=== PATIENT | male | born 1995 | race Caucasian/White ===

== ENCOUNTER 2016-09-23 15:50 | Inpatient (IN) | payer MEDICAID ==
[~2016-09-23] VITALS: Ht 180.3 cm; Wt 91.8 kg
[2016-09-23 22:13] LABS: BASOPHIL % 0.6 % (0-2); PLATELET COUNT 183 x10^3mcL (130-400); RED CELL DISTRIBUTION WIDTH 12.8 % (11.5-14.5)
[2016-09-23 22:27] LABS: CALCIUM 9.5 mg/dL (8.5-10.1); CARBON DIOXIDE 22.6 mmol/L (21-32); CHLORIDE SERUM 102 mmol/L (98-107); GFR1 > 60 mL/min; GLUCOSE SERUM 97 mg/dL (74-106); POTASSIUM SERUM 3.3 mmol/L (3.5-5.1); SODIUM SERUM 141 mmol/L (136-145)
[2016-09-23 22:40] LABS: ALBUMIN 4.6 g/dL (3.4-5.0); ALKALINE PHOSPHATASE 93 U/L (46-116); ALT/SGPT 24 U/L (16-63); AST/SGOT 22 U/L (15-37); BILIRUBIN TOTAL 0.8 mg/dL (0.20-1.00); T4(THYROXINE) 9.6 ug/dL (4.7-13.3); TOTAL PROTEIN, SERUM 7.8 g/dL (6.4-8.2)
[2016-09-24 00:50] LABS: AMPHETAMINE QUAL UR NONE DETECTED (NEG <=1000)
[2016-09-24 07:13] LABS: UA SPECIFIC GRAVITY 1.025 (1.005-1.035); microscopic required? YES; urine erythrocyte NEGATIVE (NEGATIVE)
[2016-09-24 07:20] LABS: MAGNESIUM 2.1 mg/dL (1.8-2.4); PHOSPHOROUS 4.5 mg/dL (2.5-4.9)
[2016-09-24 07:24] LABS: CHOLESTEROL/HDL RATIO 2.9
[2016-09-24 15:57] VITALS: BP 131/76
[2016-09-24 21:03] VITALS: BP 120/69
[2016-09-25 05:44] VITALS: BP 122/72
[2016-09-25 08:45] VITALS: BP 131/72
[2016-09-25 09:18] LABS: BASOPHIL % 0.9 % (0-2); PLATELET COUNT 162 x10^3mcL (130-400); RED CELL DISTRIBUTION WIDTH 13.2 % (11.5-14.5)
[2016-09-25 09:47] LABS: MAGNESIUM 1.8 mg/dL (1.8-2.4); PHOSPHOROUS 2.9 mg/dL (2.5-4.9)
[2016-09-25 11:26] LABS: CALCIUM 8.9 mg/dL (8.5-10.1); CARBON DIOXIDE 23.6 mmol/L (21-32); CHLORIDE SERUM 107 mmol/L (98-107); CREATININE SERUM 0.9 mg/dL (0.7-1.3); GFR1 > 60 mL/min; GLUCOSE SERUM 81 mg/dL (74-106); POTASSIUM SERUM 4.1 mmol/L (3.5-5.1); SODIUM SERUM 141 mmol/L (136-145)
[2016-09-25 11:50] VITALS: Ht 180.3 cm; Wt 91.8 kg
[2016-09-25 13:30] VITALS: BP 138/84
[2016-09-25 16:05] VITALS: BP 124/80
[2016-09-25 20:35] VITALS: BP 141/80
[2016-09-26 05:47] VITALS: BP 132/78
[2016-09-26 06:34] LABS: PLATELET COUNT 165 x10^3mcL (130-400); RED CELL DISTRIBUTION WIDTH 12.5 % (11.5-14.5)
[2016-09-26 06:47] LABS: microscopic required? NO
[2016-09-26 06:57] LABS: CALCIUM 8.8 mg/dL (8.5-10.1); CARBON DIOXIDE 24.8 mmol/L (21-32); CHLORIDE SERUM 109 mmol/L (98-107); CREATININE SERUM 0.8 mg/dL (0.7-1.3); GFR1 > 60 mL/min; GLUCOSE SERUM 94 mg/dL (74-106); MAGNESIUM 1.8 mg/dL (1.8-2.4); PHOSPHOROUS 3.6 mg/dL (2.5-4.9); POTASSIUM SERUM 3.7 mmol/L (3.5-5.1); SODIUM SERUM 147 mmol/L (136-145)
[2016-09-26 07:01] LABS: urine erythrocyte NEGATIVE (NEGATIVE)
[2016-09-26 07:55] VITALS: BP 108/63
[2016-09-26] MEDS ORDERED: COLACE100 MG PO ×3 (15:59→17:06)
[2016-09-26] MEDS ORDERED: NOR10T PO (16:00)
[2016-09-26] MEDS ORDERED: ZOLOFT25 MG PO (17:00)
[2016-09-26 17:04] VITALS: BP 108/63
[2016-09-26] MEDS ORDERED: IBUPROFEN400 MG PO (17:05)
[2016-09-26 17:10] VITALS: BP 129/75
== END 2016-09-26 18:13 | disposition home or self-care (01) | DRG 756 ==
LOC: ED 15:50 → DU 09-24 07:27 → MU 09-25 18:18
PROVIDERS: Emergency Medicine; ADMIT Family Medicine
DX: R45.851 Suicidal ideations (principal); N17.0 Acute kidney failure with tubular necrosis; K90.0 Celiac disease; E87.6 Hypokalemia; S62.314A Displaced fracture of base of fourth metacarpal bone, right hand, initial encounter for closed fracture; S62.316A Displaced fracture of base of fifth metacarpal bone, right hand, initial encounter for closed fracture; F12.10 Cannabis abuse, uncomplicated; W22.01XA Walked into wall, initial encounter; Y92.009 Unspecified place in unspecified non-institutional (private) residence as the place of occurrence of the external cause; Z68.28 Body mass index [BMI] 28.0-28.9, adult
CPT/HCPCS: 83880; C9113; G0480; J3490; J7030; Q0092

== ENCOUNTER → 2016-10-01 | Outpatient (CLI) | payer MEDICAID ==
[~2016-10-01] MED LIST: COLACE100 MG PO; IBUPROFEN400 MG PO; NOR10T PO; ZOLOFT25 MG PO
== END | disposition home or self-care (01) ==
LOC: RD 10:58
DX: M79.641 Pain in right hand (principal)

== ENCOUNTER 2019-08-24 05:23 | Emergency (ER) | payer SELFPAY ==
[~2019-08-24] VITALS: Ht 180.3 cm; Wt 90.3 kg
[2019-08-24 05:31] VITALS: Ht 180.3 cm; Wt 90.3 kg
[2019-08-24 06:31] LABS: CALCIUM 8.7 mg/dL (8.5-10.1); CARBON DIOXIDE 28.7 mmol/L (21-32); CHLORIDE SERUM 105 mmol/L (98-107); GFR1 > 60 mL/min; GLUCOSE SERUM 102 mg/dL (74-106); POTASSIUM SERUM 4.3 mmol/L (3.5-5.1); SODIUM SERUM 139 mmol/L (136-145)
[2019-08-24 06:35] LABS: ALBUMIN 3.7 g/dL (3.4-5.0); ALKALINE PHOSPHATASE 115 U/L (46-116); ALT/SGPT 24 U/L (16-63); AST/SGOT 7 U/L (15-37); BILIRUBIN TOTAL 0.18 mg/dL (0.20-1.00); LIPASE 104 IU/L (73-393); TOTAL PROTEIN, SERUM 6.6 g/dL (6.4-8.2)
[2019-08-24 07:28] LABS: PLATELET COUNT 187 x10^3mcL (130-400); RED CELL DISTRIBUTION WIDTH 12.9 % (11.5-14.5)
[2019-08-24 07:30] LABS: BAND NEUTROPHIL 0 % (0-10)
[2019-08-24 07:31] LABS: MONOCYTE 10 % (0-7); SEGMENTED NEUTROPHILS 58 % (37-75); rbc morphology (normal/abnorm) NORMAL (NORMAL)
[2019-08-24 07:32] LABS: PLATELET MORPHOLOGY PLATELETS NORMAL
[2019-08-24 07:44] VITALS: BP 107/62
== END 2019-08-24 07:44 | disposition home or self-care (01) ==
LOC: ED 05:23
PROVIDERS: Emergency Medicine
DX: A08.4 Viral intestinal infection, unspecified (principal); Z91.018 Allergy to other foods
CPT/HCPCS: J2405; J7030

== ENCOUNTER 2019-09-10 16:04 | Emergency (ER) | payer SELFPAY ==
[~2019-09-10] VITALS: Ht 180.3 cm; Wt 87.1 kg
[2019-09-10 16:31] VITALS: Ht 180.3 cm; Wt 87.1 kg
[2019-09-10 18:10] VITALS: BP 124/71
== END 2019-09-10 18:10 | disposition home or self-care (01) ==
LOC: ED 16:04
DX: M94.0 Chondrocostal junction syndrome [Tietze] (principal)
CPT/HCPCS: J1885; Q0092

== ENCOUNTER 2020-01-29 01:13 | Emergency (ER) | payer SELFPAY ==
[~2020-01-29] VITALS: Ht 180.3 cm; Wt 89.8 kg
[2020-01-29 01:22] VITALS: BP 152/94; Ht 180.3 cm; Wt 89.8 kg
[2020-01-29 01:59] LABS: BASOPHIL % 1.3 % (0-2); PLATELET COUNT 246 x10^3mcL (130-400); RED CELL DISTRIBUTION WIDTH 13.1 % (11.5-14.5)
[2020-01-29 02:02] LABS: CALCIUM 9.9 mg/dL (8.5-10.1); CARBON DIOXIDE 26.3 mmol/L (21-32); CHLORIDE SERUM 102 mmol/L (98-107); CREATININE SERUM 1.1 mg/dL (0.7-1.3); GFR1 > 60 mL/min; GLUCOSE SERUM 118 mg/dL (74-106); POTASSIUM SERUM 4.1 mmol/L (3.5-5.1); SODIUM SERUM 142 mmol/L (136-145)
[2020-01-29 02:10] LABS: AMPHETAMINE QUAL UR NONE DETECTED (See below)
[2020-01-29 02:15] LABS: ALBUMIN 4.9 g/dL (3.4-5.0); ALKALINE PHOSPHATASE 88 U/L (46-116); ALT/SGPT 42 U/L (16-63); AST/SGOT 53 U/L (15-37); BILIRUBIN TOTAL 0.58 mg/dL (0.20-1.00); T4(THYROXINE) 9.3 ug/dL (4.7-13.3)
[2020-01-29 02:16] LABS: TOTAL PROTEIN, SERUM 8.5 g/dL (6.4-8.2)
== END 2020-01-29 04:54 | disposition left against medical advice (07) ==
LOC: ED 01:13
PROVIDERS: Emergency Medicine
DX: R45.1 Restlessness and agitation (principal); F19.10 Other psychoactive substance abuse, uncomplicated; F10.20 Alcohol dependence, uncomplicated; Y90.6 Blood alcohol level of 120-199 mg/100 ml; Z91.018 Allergy to other foods
CPT/HCPCS: G0480